=== PATIENT | female | born 1940 | race Caucasian/White ===

== ENCOUNTER 2017-06-28 07:35 | Day surgery (SDC) | payer MEDICARE ==
[~2017-06-28] VITALS: Ht 162.6 cm; Wt 68.4 kg
[~2017-06-28 07:35] MED LIST: Advil200 M1 PO; HYDSUL200 PO; LATA.005SO BOTHEYES; LEUC5 PO; LEVSOD125 PO; LIOT5 PO; LOSHYD PO; METHOTREX; Methotrexate 1 G1 GM IJ; Remicade100 MG IV; TIMDOROPSO BOTHEYES; TRAZ100 PO
== END 2017-06-28 10:20 | disposition home or self-care (01) ==
LOC: ORSCSDS 07:35
PROVIDERS: Internal Medicine Gastroenterology
PROC: 0DBN8ZX Excision of Sigmoid Colon, Via Natural or Artificial Opening Endoscopic, Diagnostic (ICD-10-PCS; principal; 2017-06-28 08:45)
DX: Z12.11 Encounter for screening for malignant neoplasm of colon (principal); D12.5 Benign neoplasm of sigmoid colon; K57.30 Diverticulosis of large intestine without perforation or abscess without bleeding; K64.8 Other hemorrhoids; I10 Essential (primary) hypertension; E03.9 Hypothyroidism, unspecified; Z79.899 Other long term (current) drug therapy
CPT/HCPCS: 88305; J7120

== ENCOUNTER 2017-08-01 00:38 | Day surgery (SDC) | payer MEDICARE | END 2017-08-01 11:20 | disposition home or self-care (01) | LOC: ATC 00:38 | DX: M05.79 Rheumatoid arthritis with rheumatoid factor of multiple sites without organ or systems involvement (principal); E03.9 Hypothyroidism, unspecified; M75.82 Other shoulder lesions, left shoulder | CPT/HCPCS: 96413; 96415; J1745; J7050 ==

== ENCOUNTER 2017-10-12 00:44 | Day surgery (SDC) | payer MEDICARE | END 2017-10-12 10:50 | disposition home or self-care (01) | LOC: ATC 00:44 | DX: M05.79 Rheumatoid arthritis with rheumatoid factor of multiple sites without organ or systems involvement (principal) | CPT/HCPCS: 96413; 96415; J1745; J7050 ==

== ENCOUNTER → 2018-09-26 | Outpatient (CLI) | payer MEDICARE | END | disposition home or self-care (01) | LOC: LAB SHORT 11:14 → PLD 11:14 | DX: D23.112 Other benign neoplasm of skin of right lower eyelid, including canthus (principal) | CPT/HCPCS: 88305 ==

== ENCOUNTER → 2019-02-10 | Outpatient (CLI) | payer MEDICARE ==
[2019-02-12 13:07] LABS: M-SPIKE, % Not Observed % (Not Observed)
== END | disposition home or self-care (01) ==
LOC: LAB SHORT 08:16 → LAB 08:16 → LAB FUT 02-05 13:55
PROVIDERS: Internal Medicine
DX: Z00.01 Encounter for general adult medical examination with abnormal findings (principal)
CPT/HCPCS: 81050; 84166; 86335

== ENCOUNTER 2022-10-17 14:54 | Emergency (ER) | payer MEDICARE ==
[~2022-10-17] VITALS: Ht 162.6 cm; Wt 64.0 kg
[2022-10-17 15:02] VITALS: BP 203/80
[2022-10-17] MEDS ORDERED: TRAZ50 PO (16:33)
[2022-10-17] MEDS ORDERED: SYNTHROID100 M14 PO (16:33)
[2022-10-17] MEDS ORDERED: LOSARTAN-HCTZ1 EAC6 PO (16:33)
[2022-10-17] MEDS ORDERED: DORZOLAMIDE-TIM10 ML OP (16:34)
[2022-10-17] MEDS ORDERED: LEUCOVORIN CALCI PO (16:34)
[2022-10-17 16:45] LABS: Calcium, Ionized (POC) 1.09 mmol/L (1.10-1.46); Chloride (POC) 92 mmol/L (98-108); Creatinine (POC) 0.5 mg/dL (0.6-1.0); Glucose (ISTAT POC) 96 mg/dL (70-99); Hemoglobin (POC) 12.9 g/dL (12.0-16.0); Potassium (POC) 3.7 mmol/L (3.5-5.5); Sodium (POC) 126 mmol/L (135-148); Total CO2 (POC) 23 mmol/L (21-32)
== END 2022-10-17 17:03 | disposition home or self-care (01) ==
LOC: ER 14:54
PROVIDERS: Physician Assistant
DX: E87.1 Hypo-osmolality and hyponatremia (principal); M06.9 Rheumatoid arthritis, unspecified; I10 Essential (primary) hypertension; M81.0 Age-related osteoporosis without current pathological fracture; H40.9 Unspecified glaucoma; Z79.899 Other long term (current) drug therapy
CPT/HCPCS: 36415; 80047; 80048; 85014; J7030

== ENCOUNTER 2023-07-12 09:12 | Day surgery (SDC) | payer MEDICARE ==
[~2023-07-12] VITALS: Ht 162.6 cm; Wt 65.4 kg
[~2023-07-12 09:12] MED LIST changes: +Amlodipine Bes2.5 MG PO; +B-121000 MC3 PO; +BALANCED B-5050 MCG PO; +C COMPLEX1000 M1 PO; +CARV25 PO; +DORZOLAMIDE-TIM10 ML OP; +FOLI1 PO; +LEUCOVORIN CALCI PO; +LEVSOD100 PO; +LOSARTAN-HCTZ1 EAC6 PO; +MAGNESIUM OXID500 MG PO; +METHOTREXA25 MG/1 M8; -Methotrexate 1 G1 GM IJ; +OMEGA 3 PO; +OYSTER SHELL C500 MG PO; +SOOTHE XP; +SYNTHROID100 M14 PO; +Sulfazine EC500 MG PO; +TRAZ50 PO; +Vitamin B-650 MG PO; +XALATAN2.5 ML BOTHEYES
[2023-07-12] MEDS ORDERED: LOSA50 PO (09:26)
--- NOTE | 2023-07-12 09:43 | NUR ---
07/12/23 0943 Alfreda Britton IN AT 0929 PLEKACIE IN AT 0930 CALL LIGHT AT BEDSIDE
[2023-07-12 10:59] VITALS: BP 179/75
== END 2023-07-12 11:12 | disposition home or self-care (01) ==
LOC: ORSCSDS 09:12
PROVIDERS: Ophthalmology
PROC: 08923ZZ Drainage of Right Anterior Chamber, Percutaneous Approach (ICD-10-PCS; principal; 2023-07-12 10:30)
PROC: 08RJ3JZ Replacement of Right Lens with Synthetic Substitute, Percutaneous Approach (ICD-10-PCS; principal; 2023-07-12 10:30)
DX: H25.13 Age-related nuclear cataract, bilateral (principal); H40.1130 Primary open-angle glaucoma, bilateral, stage unspecified; H52.201 Unspecified astigmatism, right eye; I10 Essential (primary) hypertension; E03.9 Hypothyroidism, unspecified; Z79.899 Other long term (current) drug therapy
CPT/HCPCS: J2250; J3010; J3301; J7040; V2632

== ENCOUNTER 2023-07-19 12:57 | Day surgery (SDC) | payer MEDICARE ==
[~2023-07-19] VITALS: Ht 162.6 cm; Wt 64.8 kg
[~2023-07-19 12:57] MED LIST changes: +LOSA50 PO
--- NOTE | 2023-07-19 14:00 | NUR ---
07/19/23 1400 Mar Melgar LEFT EYE IDENTIFIED CORRECT EYE. TETRACAINE PLACED IN LEFT EYE AT 1328. PLEDGET PLACED IN LEFT EYE AT 1330. PT TOLERATED WELL.
[2023-07-19 14:33] VITALS: BP 160/70
== END 2023-07-19 15:01 | disposition home or self-care (01) ==
LOC: ORSCSDS 12:57
PROVIDERS: Ophthalmology
PROC: 08933ZZ Drainage of Left Anterior Chamber, Percutaneous Approach (ICD-10-PCS; principal; 2023-07-19 14:30)
PROC: 08RK3JZ Replacement of Left Lens with Synthetic Substitute, Percutaneous Approach (ICD-10-PCS; principal; 2023-07-19 14:30)
DX: H25.12 Age-related nuclear cataract, left eye (principal); H40.1122 Primary open-angle glaucoma, left eye, moderate stage; Z96.1 Presence of intraocular lens; I10 Essential (primary) hypertension; K21.9 Gastro-esophageal reflux disease without esophagitis; M06.9 Rheumatoid arthritis, unspecified; Z79.899 Other long term (current) drug therapy; H52.202 Unspecified astigmatism, left eye
CPT/HCPCS: J1100; J2250; J2405; J3010; J3301; J7040; V2632